=== PATIENT | female | born 1955 | race Two or more races ===

== ENCOUNTER 2022-02-09 11:28 | Day surgery (SDC) | payer MEDICARE, MEDICAID ==
[2022-02-08 09:39] LABS: Basophils # (auto) 0.1 10 ^3/uL (0-0.2); Basophils % (auto) 1.2 % (0.0-2.0); Eosinophils # (auto) 0.2 10 ^3/uL (0-0.8); Eosinophils % (auto) 1.5 % (0.0-7.0); Hematocrit 46.4 % (36.0-46.0); Hemoglobin 15.3 g/dL (12.2-16.2); Lymphocytes # (auto) 1.8 10 ^3/uL (0.4-5.4); Lymphocytes % (auto) 18.2 % (10.0-50.0); Mean Corpuscular Hemoglobin 29.2 pg (28.0-32.0); Mean Corpuscular Volume 88.5 fL (80.0-100.0); Monocytes # (auto) 1.1 10 ^3/uL (0-1.3); Monocytes % (auto) 10.6 % (0.0-12.0); Neutrophils # (auto) 6.8 10 ^3/uL (1.6-8.6); Neutrophils % (auto) 68.5 % (37.0-80.0); Nucleated Red Blood Cells % 0.1 %; Red Blood Cells 5.24 10^6/uL (4.0-5.20); Red Cell Distribution Width 15.4 % (11.8-14.3)
[2022-02-08 09:54] LABS: INR 1.02 (0.9-1.15); Partial Thromboplastin Time 24.8 sec (24.6-33.4)
[2022-02-08 10:18] LABS: Albumin 3.7 g/dL (3.4-5.0); Calcium 9.6 mg/dL (8.5-10.1)
[2022-02-08 10:23] LABS: BUN/Creatinine Ratio 16.7; Bilirubin, Total 0.9 mg/dL (0.2-1.0); Total Protein 8.4 g/dL (6.4-8.2)
[~2022-02-09] VITALS: Ht 160 cm; Wt 79.8 kg
[~2022-02-09 11:28] MED LIST: ALBUAER3 IN; BUDE20SU; OMEP20TA PO
[2022-02-09] MEDS ORDERED: OME20GT PO (12:26)
[2022-02-09] MEDS ORDERED: PROM2SYP2 PO (12:29)
[2022-02-09] MEDS ORDERED: BUDE1AER5 IN (12:29)
[2022-02-09] MEDS ORDERED: LIDOCAINE VISCOUS 2% 15ML UD ONE (12:39)
[2022-02-09] MEDS: MIDAZOLAM HCL 2MG/2ML 2ml VIAL (1mg/ml) ONE ×2 (12:43→12:48)
[2022-02-09] MEDS: diphenhdrAMINE HCL 50 MG/1 ML VL ONE ×2 (12:43→12:46)
[2022-02-09] MEDS: fentaNYL CITRATE 100 MCG/2 ML VL ONE ×2 (12:43→12:48)
[2022-02-09 13:35] VITALS: BP 127/76
== END 2022-02-09 13:50 | disposition home or self-care (01) ==
LOC: EDSEX → GI 11:28
PROVIDERS: ATTEND Internal Medicine Gastroenterology
DX: R13.10 Dysphagia, unspecified (principal); K21.00 Gastro-esophageal reflux disease with esophagitis, without bleeding; K44.9 Diaphragmatic hernia without obstruction or gangrene; K29.50 Unspecified chronic gastritis without bleeding; B96.81 Helicobacter pylori [H. pylori] as the cause of diseases classified elsewhere; Z20.822 Contact with and (suspected) exposure to COVID-19
CPT/HCPCS: 36415; 43239; 43450; 80053; 85025; 85610; 85730; 88305; 88342; J1200; J2250; J3010; J7030; U0003